=== PATIENT | male | born 1950 | race Caucasian/White ===

== ENCOUNTER → 2017-11-11 | Outpatient (CLI) | payer MEDICARE ==
--- NOTE | 2017-11-11 10:44 | RAD ---
AP and lateral views left knee 11/11/2017 2:00 AM Indication: left knee pain Comparison: None Findings: There is no fracture or dislocation identified. Articular surfaces are uninterrupted. Soft tissues are unremarkable. Impression: No evidence of acute osseous abnormality
== END | disposition home or self-care (01) ==
LOC: PMG 10:00
PROVIDERS: ATTEND Physician Assistant
DX: M25.562 Pain in left knee (principal)
CPT/HCPCS: 73560

== ENCOUNTER 2019-11-02 17:03 | Emergency (ER) | payer MEDICARE ==
[~2019-11-02] VITALS: Ht 175.3 cm; Wt 86.3 kg
[2019-11-02 17:03] VITALS: BP 156/100
--- NOTE | 2019-11-02 17:47 | PHYS DOC ---
Adult General Chief Complaint Chief Complaint: HIP PAIN [facility] HPI Patient is a 69-year-old male who presents with complaint of left hip pain that is chronic in nature. Patient indicates that he had severe arthritis in his right hip and has had a total of 3 surgeries to the right hip. He states that the plan had been to do hip replacement on the right and when he had healed, to have the left hip done. He states that over the last few days to left hip pain has gotten much worse and he is now having difficulty with weightbearing. Patient denies any recent injuries to his hip.[] Review of Systems Review of Systems Constitutional: Denies fever or chills [] Respiratory: Denies cough or shortness of breath [] Cardiovascular: No additional information not addressed in HPI [] Musculoskeletal: Positive left hip pain [] Integument: Denies rash or skin lesions [] Allergies Allergies Allergies Coded Allergies Type Severity Reaction Last Updated Verified No Known Drug Allergies 01/22/19 No Physical Exam Physical Exam Constitutional: Well developed, well nourished, no acute distress, non-toxic appearance. [] Cardiovascular:Heart rate regular rhythm, no murmur [] Lungs & Thorax: Bilateral breath sounds clear to auscultation [] Extremities: Left leg demonstrates no external rotation or shortening. Patient does report to some pain with range of motion testing of the left hip. [] Neurologic: Alert and oriented X 3, no focal deficits noted. [] EKG EKG [] Radiology/Procedures Radiology/Procedures [] Course & Med Decision Making Course & Med Decision Making Pertinent Labs and Imaging studies reviewed. (See chart for details) [] Dragon Disclaimer Dragon Disclaimer This electronic medical record was generated, in whole or in part, using a voice recognition dictation system. Departure Departure: Impression: Primary Impression: Osteoarthritis of left hip Disposition: HOME, SELF-CARE Condition: STABLE Referrals: ELDER WOODARD (PCP) Patient Instructions: Hip Pain, Osteoarthritis Scripts Hydrocodone Bit/Acetaminophen (NORCO 5-325 TABLET) 1 Each Tablet 1 TAB PO PRN Q6HRS PRN for PAIN, #12 TAB 0 Refills Prov: TREY KAUR Jr. DO 11/02/19 Diclofenac Sodium (DICLOFENAC SODIUM) 50 Mg Tablet.dr 1 TAB PO BID PRN for PAIN, #20 TAB Prov: TREY KAUR Jr. DO 11/02/19 Problem Qualifiers Primary Impression: Osteoarthritis of left hip Osteoarthritis type: unspecified Qualified Codes: M16.12 - Unilateral primary osteoarthritis, left hip TREY KAUR Jr. DO Nov 02, 2019 17:47
[2019-11-02] MEDS ORDERED: HYDR-3165 PO (18:02)
[2019-11-02] MEDS ORDERED: DICL50TA4 PO (18:02)
--- NOTE | 2019-11-02 18:35 | RAD ---
Single view pelvis and two-view left hip dated 11/02/2019. No comparison available. CLINICAL INDICATION: Hip pain. FINDINGS: AP view pelvis shows normal bony alignment. There is a right hip prosthesis in place with anatomic alignment. No periprosthetic fracture. Moderate to severe degenerative change of the left hip joint with marginal osteophytes and joint space narrowing. No evidence of fracture. Pelvic ring is intact. IMPRESSION: No acute radiographic abnormality. Degenerative changes as described. Electronically signed by: Ej Bliss MD (11/02/2019 6:32 PM) [id number]
== END 2019-11-02 18:20 | disposition home or self-care (01) ==
LOC: ER 17:03
DX: M16.12 Unilateral primary osteoarthritis, left hip (principal)
CPT/HCPCS: 73502; 99283